=== PATIENT | female | born 1995 | race Two or more races ===

== ENCOUNTER 2017-07-23 11:51 | Emergency (ER) | payer MEDICAID ==
[~2017-07-23] VITALS: Ht 167.6 cm; Wt 76.2 kg
[2017-07-23 11:58] VITALS: Ht 167.6 cm; Wt 76.2 kg
[2017-07-23 15:23] VITALS: BP 126/82
== END 2017-07-23 16:17 | disposition home or self-care (01) ==
LOC: ED 11:51
DX: J03.90 Acute tonsillitis, unspecified (principal)
CPT/HCPCS: J1100

== ENCOUNTER 2018-02-15 18:22 | Emergency (ER) | payer OTHER ==
[~2018-02-15] VITALS: Ht 165.1 cm; Wt 71.8 kg
[2018-02-15 18:33] VITALS: Ht 165.1 cm; Wt 71.8 kg
[2018-02-15 19:40] LABS: microscopic required? YES; urine erythrocyte 3+ (NEGATIVE)
[2018-02-15 20:47] VITALS: BP 116/68
== END 2018-02-15 20:47 | disposition home or self-care (01) ==
LOC: ED 18:22
PROVIDERS: Emergency Medicine
DX: N39.0 Urinary tract infection, site not specified (principal); N30.81 Other cystitis with hematuria
CPT/HCPCS: J0696; Q0162